=== PATIENT | female | born 1990 | race Caucasian/White ===

== ENCOUNTER 2018-12-18 06:46 | Inpatient (IN) | payer MEDICAID ==
[~2018-12-18] VITALS: Ht 175.3 cm; Wt 129.4 kg
[2018-12-18 07:02] VITALS: Ht 175.3 cm; Wt 129.4 kg
--- NOTE | 2018-12-18 07:06 | NUR ---
PTPT BIB [facility], PER MEDIC PT HAS BEEN HAVING LOWER BACK PAIN "SINCE MONDAY" BUT UPON GETTING OUT OF BED THIS MORNING PT HEARD A "POP" IN HER BED. PT IS C/O LOWER BACK PAIN RADIDATING TO BILATERAL LOWER EXTREMITIES. PT IS AAOX4, NO DISTRESS NOTED, RESP E/U, +PMSC, FULL ROM WITH INCREASED PAIN TO LOWER BACK AND BILATERAL LOWER EXTREMITIES, SKIN INTACT PINK WARM AND DRY. MSE COMPLETED BY DR REYNOLDS. PT PLACED ON MONITOR, VSS, BED IN LOWEST POSITION FOR SAFETY AND CALL [place] WITHIN REACH.
--- NOTE | 2018-12-18 07:12 | NUR ---
REPORT GIVEN TO GABY FLANNERY RN WHO WILL BE ASSUMING FURTHER CARE OF THIS PATIENT.
--- NOTE | 2018-12-18 07:13 | NUR ---
REPORT RECEIVED FROM ZUNILDA CONNELLY, AGREE WITH NURSES ASSESSMENT.
--- NOTE | 2018-12-18 07:21 | NUR ---
PT ATTEMPTED TO GET OUT OF BED TO USE RESTROOM. PT WAS UNABLE TO AMBULATE.
--- NOTE | 2018-12-18 07:23 | NUR ---
PT OFF FLOOR TAKEN FOR XRAY
--- NOTE | 2018-12-18 09:15 | NUR ---
PT LAYING ON GURNEY IN POSITION OF COMFORT, AAOX4, RESP E/U, NO ACUTE DISTRESS NOTED AT THIS TIME.
--- NOTE | 2018-12-18 10:57 | NUR ---
PT UNABLE TO WALK MORE THAN A COUPLE STEPS DURING ROAD TEST. PT UNABLE TO STAND UP STRAIGHT. PT NEEDED ASSISTANCE OUT OF BED AND BEING PLACE BACK ONTO BED. PT C/O 10/[address] TEST.
--- NOTE | 2018-12-18 11:52 | NUR ---
REPORT CALLED TO ZUNILDA CHAVEZ ON [facility] TO ASSUME CARE OF PT.
--- NOTE | 2018-12-18 12:15 | NUR ---
RECEIVED FROM ER VIA [facility], ABLE TO WALK FROM THE HALLWAY ASSISTED BY 2 NURSES TO BED. ADMITS FOR INTRACTABLE BACK PAIN. STATED BACK PAIN SINCE MONDAY WORSEN TODAY, PAIN IS 10/10 ON PAIN SCALE ON MOVEMENT. KEPT COMFORTABLE IN BED. C/O OF PAIN TO LT WRIST IV SITE, REQUEST TO HAVE IT REMOVED. V/S CHECKED STABLE, BP 116/57, HR 91, RR 20, O2SAT 97% ON ROOM AIR. ORIENTING TO ROOM ENVIRONMENT. CALL LIGHT PLACED WITHIN EASY REACH, SIDERAILS UP X2.
--- NOTE | 2018-12-18 12:30 | NUR ---
SITTING UP IN BED 45 DEG HAVING REGULAR DIET FOR LUNCH. STATED PAIN IS TOLERABLE AT THIS TIME.
[2018-12-18 12:47] VITALS: BP 116/57
--- NOTE | 2018-12-18 13:00 | NUR ---
S/L TO LEFT WRIST REMOVED PER PATIENT'S REQUEST. NO ERYTHEMA OR INFILTRATION TO SITE, DRSG APPLIED. NEW IV CATHETER#22 INSERTED TO LFA WITH GOOD BLD RETURNED AND FLUSEHD WELL. PLAN OF CARE DISCUSSED. REFUSED PAIN MEDS OFFERED STATED MAYBE LATER.
[2018-12-18 17:21] VITALS: BP 117/57
--- NOTE | 2018-12-18 20:02 | NUR ---
RECEIVED PATIENT IN BED AWAKE, ALERT AND ORIENTED WITH NO C/O BACKPAIN AT THIS TIME, PATIENT MEDICATED EARLIER BY AM SHIFT FOR PAIN. BREATHING EASY AND NONLABOR SATTING AT99% RA. ABDOMEN ROUND AND NOTENDER WITH ACTIVE BS, WILL CONTINUE TO MONITOR. CALL LIGHT WITHIN REACH.
[2018-12-18 21:00] VITALS: BP 115/45
--- NOTE | 2018-12-18 23:52 | NUR ---
PATIENT APPEARS TO BE SLEEPING THIS TIME, NO INDICATION OF PAIN AND DISCOMFORT NOTED.
--- NOTE | 2018-12-19 05:11 | NUR ---
PATIENT SLEPT AT LONG INTERVALS, NO INDICATION OF BACKAPIN AND DISCOMFORT NOTED THE ENTIRE SHIFT. ALL NEEDS ATTENDED.
[2018-12-19 05:17] VITALS: BP 96/48
[2018-12-19 09:25] VITALS: BP 127/70
--- NOTE | 2018-12-19 09:54 | NUR ---
AT 0705 - RECEIVED PATIENT FROM NIGHT NURSE. SLEEPING. RESPIRATIONS REGULAR. AT 0740 - SITTING UP IN BED EATING BREAKFAST. REPORTS FEELING A LITTLE BETTER TODAY. REPORTS THAT SHE STIL HAS PAIN IN LOWER BACK. ABLE TO AMBULATE TO BATHROOM. AT 0810 - MEIDCATED WITH TORADOL PER EMAR. AT 0930 - PATIENT APPEARS MUCH MORE COMFORTABLE.
[2018-12-19] MEDS ORDERED: TRAMADOL HCL50 MG PO (10:53)
[2018-12-19 11:48] VITALS: BP 127/70
--- NOTE | 2018-12-19 12:13 | NUR ---
AT 1100 - RECEIVED DISCHARGE ORDERS. PATIENT MAY SHOWER BEFORE DISCHARGE. AT 1145 - PATIENT HAS SHOWERED. IV CATHETER REMOVED INTACT. PATIENT IS DRESSED AND SITTING IN CHAIR. AT 1205 - PRINTED DISCHARGE INSTRUCTIONS GIVEN AND EXPLAINED TO PATIENT. PRESCRIPTION AND WORK NOTED PROVIDED. DISCHARGED HOME WITH FAMILY. TAKEN TO CAR IN WHEELCHAIR BY NURSE.
--- NOTE | 2018-12-19 13:04 | NUR ---
PHYSICAL THERAPY NOTE ATTEMPTED FOR FOLLOW UP PHYSICAL THERAPY SESSION. PATIENT D/C'd BEFORE TREATMENT.
== END 2018-12-19 12:05 | disposition home or self-care (01) | DRG 347 ==
LOC: ED 06:46 → MU 11:01
PROVIDERS: ADMIT Internal Medicine
DX: M51.26 Other intervertebral disc displacement, lumbar region (principal)
CPT/HCPCS: 97112-GP; G0378; J1885; J2270; J2405; J2930; J3010

== ENCOUNTER 2019-09-12 21:50 | Emergency (ER) | payer MEDICAID ==
[~2019-09-12] VITALS: Ht 175.3 cm; Wt 140.2 kg
[~2019-09-12 21:50] MED LIST: TRAMADOL HCL50 MG PO
[2019-09-12 21:58] VITALS: Ht 175.3 cm; Wt 140.2 kg
[2019-09-12 22:57] LABS: PLATELET COUNT 221 x10^3mcL (130-400); RED CELL DISTRIBUTION WIDTH 12.9 % (11.5-14.5)
[2019-09-12 22:58] LABS: BASOPHIL % 2.5 % (0-2)
[2019-09-12 23:10] LABS: CALCIUM 8.5 mg/dL (8.5-10.1); CARBON DIOXIDE 26.9 mmol/L (21-32); CHLORIDE SERUM 103 mmol/L (98-107); CREATININE SERUM 0.7 mg/dL (0.6-1.0); GFR1 > 60 mL/min; GLUCOSE SERUM 110 mg/dL (74-106); POTASSIUM SERUM 3.8 mmol/L (3.5-5.1); SODIUM SERUM 138 mmol/L (136-145)
[2019-09-12 23:14] LABS: ALKALINE PHOSPHATASE 99 U/L (46-116); ALT/SGPT 33 U/L (14-59); AST/SGOT 22 U/L (15-37); BILIRUBIN TOTAL 0.3 mg/dL (0.20-1.00); TOTAL PROTEIN, SERUM 6.9 g/dL (6.4-8.2)
[2019-09-12 23:18] LABS: ALBUMIN 3.1 g/dL (3.4-5.0)
[2019-09-13 00:44] VITALS: BP 129/70
== END 2019-09-13 00:44 | disposition home or self-care (01) ==
LOC: ED 21:50
PROVIDERS: Emergency Medicine
DX: O26.891 Other specified pregnancy related conditions, first trimester (principal); M54.30 Sciatica, unspecified side; O99.211 Obesity complicating pregnancy, first trimester; Z3A.01 Less than 8 weeks gestation of pregnancy
CPT/HCPCS: Q0092